=== PATIENT | male | born 1945 | race Hispanic/Latino ===

== ENCOUNTER → 2017-12-17 | Outpatient (CLI) | payer MEDICARE ==
[~2017-12-17] MED LIST: AMLODIPINE BESY10 MG PO; ASPIR 8181 MG PO; ATORVASTATIN CA10 MG PO; LISINOPRIL10 MG PO; MELOXICAM7.5 MG PO; METFORMIN HCL500 MG PO; OMEPRAZOLE20 M1 PO
--- NOTE | 2017-12-17 13:42 | Diagnostic Imaging Report ---
EXAM: Limited soft tissue Ultrasound INDICATION: Groin pain \[id number] \S\1200 \S\GROIN PAIN UNSPEC LATERALITY COMPARISON: CT abdomen and pelvis 07/05/2015 TECHNIQUE: Transverse and longitudinal images of the upper abdomen were obtained. FINDINGS: Grayscale transverse and longitudinal images of the bilateral inguinal regions were obtained. No inguinal hernia, free fluid or fluid collections are identified. IMPRESSION: No evidence of inguinal hernia. Findings discussed with GENET Espinoza December 17, 2017 at 1335 hours Signed by: Dr. Shree Garcia M.D. on 12/17/2017 1:39 PM
== END ==
LOC: US 11:36
PROVIDERS: ATTEND Family Medicine
DX: R10.30 Lower abdominal pain, unspecified (principal)
CPT/HCPCS: 76882